=== PATIENT | male | born 1975 | race Caucasian/White ===

== ENCOUNTER 2017-02-12 15:42 | Emergency (ER) | payer OTHER ==
[2017-02-12 15:53] VITALS: BMI 37.8
--- NOTE | 2017-02-12 17:27 | PDOC ---
History of Present Illness - History of Present Illness Initial Comments: 02/12/17 18:07 Patient is a 41 year old male with significant medical hx of ETOH abuse who is presenting to the ED with abdominal pain for the past two years but worsened today. The patient reports diffuse abdominal pain that is worse in the epigastric region and LLQ. He describes his pain as an "exploding" and "bursting " sensation; the patient rates his pain 7/10 in severity. The patient notes that he was on protonix several years ago which helped for a while until he was switched to prilosec. Patient suspects his abdominal pain is related to his drinking; his last drink was several hours prior to arrival. The patient's last detox was 09/2016. Denies fever, chills, nausea, vomiting, diarrhea. NKDA, denies past surgeries <Amy Mayorga - Last Filed: 02/12/17 18:07> - General History Source: Patient Exam Limitations: No Limitations <Elizabeth Owusu - Last Filed: 02/13/17 13:11> - General Chief Complaint: Pain Stated Complaint: ABD PAIN Time Seen by Provider: 02/12/17 17:25 Past History <Amy Mayorga - Last Filed: 02/12/17 18:07> - Past Medical History Anemia: No Asthma: No Cancer: No Cardiac Disorders: No CVA: No COPD: No CHF: No Dementia: No Diabetes: No GI Disorders: Yes (GERD no med) Disorders: No HTN: No Hypercholesterolemia: No Kidney Stones: No Liver Disease: No Suicide Attempt (Hx): Yes (2-3x) Seizures: No Thyroid Disease: No - Surgical History Abdominal Surgery: No Appendectomy: No Cardiac Surgery: No Cholecystectomy: No Lung Surgery: No Neurologic Surgery: No Orthopedic Surgery: No - Reproductive History Testicular Surgery: No - Psycho/Social/Smoking Cessation Hx Anxiety: Yes Suicidal Ideation: No Smoking Status: Yes Smoking History: Current every day smoker Have you smoked in the past 12 months: Yes Number of Cigarettes Smoked Daily: 20 Information on smoking cessation initiated: No 'Breaking Loose' booklet given: 09/04/16 Hx Alcohol Use: Yes Drug/Substance Use Hx: Yes Substance Use Type: Alcohol, Marijuana Hx Substance Use Treatment: Yes ([facility] 06/16/12 to 06/21/12) <Elizabeth Owusu - Last Filed: 02/13/17 13:11> - Past Medical History Allergies/Adverse Reactions: Allergies Allergy/AdvReac Type Severity Reaction Status Date / Time No Known Allergies Allergy Verified 02/12/17 15:50 Home Medications: Ambulatory Orders Quetiapine Fumarate [Seroquel -] 200 mg PO HS 09/04/16 Quetiapine Fumarate [Seroquel -] 200 mg PO HS #30 tab 09/04/16 Hydrochlorothiazide [Hctz -] 25 mg PO DAILY #30 tablet 09/08/16 Review of Systems - Review of Systems Comments:: 02/12/17 18:12 GENERAL/CONSTITUTIONAL: No: fever, chills, weakness, loss of appetite. HEAD, EYES, EARS, NOSE AND THROAT: No: change in vision, ear pain, discharge, sore throat, throat swelling. CARDIOVASCULAR: No: chest pain, lightheadedness, palpitations, syncope RESPIRATORY: No: cough, shortness of breath, wheezing, hemoptysis, stridor. GASTROINTESTINAL: Yes: abdominal pain. No: nausea, vomiting, abdominal cramping , diarrhea, rectal bleeding, constipation. GENITOURINARY: No: dysuria, hematuria, frequency, urgency, flank pain. MUSCULOSKELETAL: No: back pain, neck pain, joint pain, muscle swelling or pain SKIN AND BREASTS: No: lesions, pallor, rash or easy bruising. NEUROLOGIC: No: headache, vertigo, paresthesias, weakness ENDOCRINE: No: unexplained weight gain or loss HEMATOLOGIC/LYMPHATIC: No: anemia, easy bleeding, swelling nodes <Tierra,Amy - Last Filed: 02/12/17 18:07> *Physical Exam - Vital Signs Last Vital Signs Temp Pulse Resp BP Pulse Ox 98.2 F 112 H 18 158/117 97 02/12/17 15:50 02/12/17 15:50 02/12/17 15:50 02/12/17 15:50 02/12/17 15:50 - Physical Exam Comments: 02/12/17 18:13 GENERAL: The patient is in no acute distress. HEAD: Normal with no signs of trauma. EYES: PERRLA, EOMI, sclera anicteric, conjunctiva clear. ENT: Ears normal, nares patent, oropharynx clear without exudates. Moist mucous membranes. NECK: Normal range of motion, supple without lymphadenopathy, JVD, or masses. LUNGS: Breath sounds equal, clear to auscultation bilaterally. No wheezes, and no crackles. HEART:Regular rate and rhythm, normal S1 and S2 without murmur, rub or gallop. ABDOMEN: Soft, diffuse abdominal tenderness to RUQ, epigastric region and LLQ with voluntary guarding, no rebound, normoactive bowel sounds. EXTREMITIES: Normal range of motion, no edema. No clubbing or cyanosis. No erythema, or tenderness. NEUROLOGICAL: Cranial nerves II through XII grossly intact. Normal speech. No focal neurological deficits. MUSCULOSKELETAL: Back non-tender to palpation, no CVA tenderness SKIN: Warm, Dry, normal turgor, no rashes or lesions noted. <Amy Mayorga - Last Filed: 02/12/17 18:07> - Vital Signs Last Vital Signs Temp Pulse Resp BP Pulse Ox 98.2 F 112 H 18 158/117 97 02/12/17 15:50 02/12/17 15:50 02/12/17 15:50 02/12/17 15:50 02/12/17 15:50 <Elizabeth Owusu - Last Filed: 02/13/17 13:11> ED Treatment Course - LABORATORY CBC & Chemistry Diagram: 02/12/17 17:33 02/12/17 17:33 <Elizabeth Owusu - Last Filed: 02/13/17 13:11> Medical Decision Making - Medical Decision Making 02/12/17 17:26 A portion of this note was documented by scribe services under my direction. I have reviewed the details of the note, within reason, and agree with the documentation with the following case summary and management plan written by me. Nursing documentation reviewed and incorporated into medical decision making This is a 41 yo M with a history of alcohol abuse, he states he drinks 8 beers per day (+) h/o withdrawal no h/o withdrawal seizure Pt presents to the Er with a complaint of abdominal pain Pt states he has had this pain for many years but it has worsened He was previously prescribed protonix, ran out of this and was switched to pepcid which he does not think was as effective as protonix Pt states he has pain which he can only describe as "Something exploding in his stomach" or like "metal in his stomach" No fevers or chills No vomiting No diarrhea Pt last drink was a few hours ago On examination: RUQ tenderness to palpation LLQ tenderness to palpation (+) guarding No rebound Will do Labs IV Fluids Banana bag Protonix Will do CT abd and pelvis Will re assess Pt last detox on Sep 2016 Pt signed out to Dr Valadez, may benefit from transfer to [facility] <Elizabeth Owusu - Last Filed: 02/13/17 13:11> *DC/Admit/Observation/Transfer - Attestations Scribe Attestion: 02/12/17 18:14 Documentation prepared by Amy Mayorga, acting as medical photographer for Elizabeth Owusu MD. <Amy Mayorga - Last Filed: 02/12/17 18:07> <Elizabeth Owusu - Last Filed: 02/13/17 13:11> Diagnosis at time of Disposition: Alcohol dependence - Discharge Dispostion Disposition: I.P. ALCOHOL/SUBS ABUSE REHAB Condition at time of disposition: Stable
[2017-02-12] MEDS: SODIUM CHLORIDE 1,000 ML IV STA (18:06)
[2017-02-12] MEDS ORDERED: chlordiazePOXIDE HCL 25 MG CAPSULE ONE (18:12)
[2017-02-12] MEDS ORDERED: PANTOPRAZOLE SODIUM 100 ML IVPB ONE (18:12)
[2017-02-12 18:19] LABS: BASOPHIL 0.7 % (0-2.0); EOSINOPHIL 1.2 % (0-4.5); MCH 29.1 pg (25.7-33.7); MCHC 33.4 g/dl (32.0-35.9); MEAN CELL VOLUME 87.1 fl (80-96); MEAN PLT VOLUME 9.4 fl (7.5-11.1); NEUTROPHILS 53.3 % (42.8-82.8); PLATELET COUNT 65 K/MM3 (134-434); WHITE BLOOD COUNT 4.6 K/mm3 (4.0-10.0)
[2017-02-12] MEDS: chlordiazePOXIDE HCL 25 MG CAPSULE PO ONE (18:20)
[2017-02-12] MEDS: PANTOPRAZOLE SODIUM 40 MG in SODIUM CHLORIDE 100 ML IVPB ONE (18:20)
[2017-02-12 18:43] LABS: ALBUMIN 3.9 g/dl (3.4-5.0); ALK PHOS 83 U/L (45-117); ANION GAP 12 (8-16); BILIRUBIN,TOTAL 0.6 mg/dL (0.2-1.0); CALCIUM 8.6 mg/dL (8.5-10.1); CO2 25 mmol/L (21-32); COCKROFT - GAULT 155.5; CREATININE 0.9 mg/dL (0.7-1.3); GLUCOSE,RANDOM 131 mg/dL (74-106); SGOT/AST 199 U/L (15-37); SGPT/ALT 152 U/L (12-78); TOT PROT 7.5 g/dl (6.4-8.2)
[2017-02-12] MEDS: FOLIC ACID INJECTION - 1 MG, THIAMINE HCL 100 MG, MULTIVIT INJECTION ADULT 10 ML in SOD... IVPB ONE (21:25)
--- NOTE | 2017-02-13 00:16 | PDOC ---
*Physical Exam - Vital Signs Last Vital Signs Temp Pulse Resp BP Pulse Ox 98.2 F 112 H 18 158/117 97 02/12/17 15:50 02/12/17 15:50 02/12/17 15:50 02/12/17 15:50 02/12/17 15:50 - Physical Exam General Appearance: Yes: Nourished ED Treatment Course - LABORATORY CBC & Chemistry Diagram: 02/12/17 17:33 02/12/17 17:33 - ADDITIONAL ORDERS Additional order review: Laboratory Results 02/12/17 17:33 Sodium 138 Potassium 3.7 Chloride 101 Carbon Dioxide 25 Anion Gap 12 BUN 4 L D Creatinine 0.9 Creat Clearance w eGFR > 60 Random Glucose 131 H Calcium 8.6 Total Bilirubin 0.6 AST 199 H D ALT 152 H D Alkaline Phosphatase 83 Total Protein 7.5 Albumin 3.9 02/12/17 17:33 RBC 5.46 MCV 87.1 MCHC 33.4 RDW 14.0 MPV 9.4 D Neutrophils % 53.3 Lymphocytes % 35.3 Monocytes % 9.5 Eosinophils % 1.2 D Basophils % 0.7 - RADIOLOGY Radiology Studies Ordered: Category Date Time Status ABDOMEN & PELVIS CT WITH CONTR [CT] Stat CT Scan 02/12/17 17:27 Completed - Medications Given in the ED: ED Medications Discontinued Medications Generic Name Dose Route Start Last Admin Trade Name Gema PRN Reason Stop Dose Admin Chlordiazepoxide HCl 25 mg 02/12/17 17:51 02/12/17 18:20 Librium - PO 02/12/17 17:52 25 mg ONCE ONE Administration Pantoprazole Sodium 40 mg/ 100 mls @ 200 mls/hr 02/12/17 18:04 02/12/17 18:20 Sodium Chloride IVPB 02/12/17 18:33 200 mls/hr ONCE ONE Administration Medical Decision Making - Medical Decision Making 02/13/17 06:24 spoke to nurse practtioner at [facility]. Patient may go to [facility] at 8 a.m. this morning. *DC/Admit/Observation/Transfer Diagnosis at time of Disposition: Alcohol dependence - Discharge Dispostion Disposition: I.P. ALCOHOL/SUBS ABUSE REHAB Condition at time of disposition: Stable Admit: No
[2017-02-13] MEDS ORDERED: chlordiazePOXIDE HCL 25 MG CAPSULE ONE ×2 (00:22→05:45)
[2017-02-13] MEDS ORDERED: LORAZEPAM CARPU-JECT 2 MG/ML DISP.SYRIN ONE ×2 (00:22→05:46)
[2017-02-13] MEDS: chlordiazePOXIDE HCL 25 MG CAPSULE PO ONE ×2 (00:30→05:50)
[2017-02-13] MEDS: LORAZEPAM CARPU-JECT 2 MG/ML DISP.SYRIN IVPUSH ONE ×2 (00:30→05:50)
[2017-02-13 05:32] VITALS: TEMP 98
--- NOTE | 2017-02-13 10:05 | PDOC ---
*Physical Exam - Vital Signs Last Vital Signs Temp Pulse Resp BP Pulse Ox 98.0 F 83 16 116/94 98 02/13/17 05:29 02/13/17 05:29 02/13/17 05:29 02/13/17 05:29 02/13/17 05:29 ED Treatment Course - LABORATORY CBC & Chemistry Diagram: 02/12/17 17:33 02/12/17 17:33 - ADDITIONAL ORDERS Additional order review: 02/12/17 17:33 RBC 5.46 MCV 87.1 MCHC 33.4 RDW 14.0 MPV 9.4 D Neutrophils % 53.3 Lymphocytes % 35.3 Monocytes % 9.5 Eosinophils % 1.2 D Basophils % 0.7 - Medications Given in the ED: ED Medications Discontinued Medications Generic Name Dose Route Start Last Admin Trade Name Freq PRN Reason Stop Dose Admin Chlordiazepoxide HCl 25 mg 02/12/17 17:51 02/12/17 18:20 Librium - PO 02/12/17 17:52 25 mg ONCE ONE Administration Chlordiazepoxide HCl 25 mg 02/13/17 00:14 02/13/17 00:30 Librium - PO 02/13/17 00:15 25 mg ONCE ONE Administration Chlordiazepoxide HCl 25 mg 02/13/17 05:40 02/13/17 05:50 Librium - PO 02/13/17 05:41 25 mg ONCE ONE Administration Sodium Chloride 1,000 mls @ 125 mls/hr 02/12/17 17:28 02/12/17 18:06 Normal Saline - IV 02/13/17 01:27 125 mls/hr ASDIR STA Administration Pantoprazole Sodium 40 mg/ 100 mls @ 200 mls/hr 02/12/17 18:04 02/12/17 18:20 Sodium Chloride IVPB 02/12/17 18:33 200 mls/hr ONCE ONE Administration Folic Acid 1 mg/ Thiamine HCl 1,000 mls @ 125 mls/hr 02/12/17 18:04 02/12/17 21 :25 100 mg/ Multivitamins/Minerals IVPB 02/13/17 02:03 125 mls/hr 10 ml/ Sodium Chloride ONCE ONE Administration Lorazepam 1 mg 02/13/17 00:16 02/13/17 00:30 Ativan Injection - IVPUSH 02/13/17 00:17 1 mg ONCE ONE Administration Lorazepam 1 mg 02/13/17 05:40 02/13/17 05:50 Ativan Injection - IVPUSH 02/13/17 05:41 1 mg ONCE ONE Administration Medical Decision Making - Medical Decision Making 02/13/17 10:05 D/w Dr. Johansen, patient is accepted to [facility]. *DC/Admit/Observation/Transfer Diagnosis at time of Disposition: Alcohol dependence - Discharge Dispostion Disposition: I.P. ALCOHOL/SUBS ABUSE REHAB Condition at time of disposition: Stable Admit: No
[2017-02-13 10:41] VITALS: BP 160/100; PULSE 86
== END 2017-02-13 10:43 | disposition other institution (70) ==
LOC: JER 15:42
PROC: 3E033GC Introduction of Other Therapeutic Substance into Peripheral Vein, Percutaneous Approach (ICD-10-PCS; principal; 2017-02-12)
PROC: 3E033GC Introduction of Other Therapeutic Substance into Peripheral Vein, Percutaneous Approach (ICD-10-PCS; 2017-02-12)
PROC: 3E033NZ Introduction of Analgesics, Hypnotics, Sedatives into Peripheral Vein, Percutaneous Approach (ICD-10-PCS; 2017-02-12)
DX: F10.20 Alcohol dependence, uncomplicated (principal)
CPT/HCPCS: 36415; 74177-TC; 80053; 85025; 99282-25

== ENCOUNTER 2017-02-13 11:34 | Inpatient (IN) | payer OTHER ==
[2017-02-13 14:09] VITALS: BMI 32.5
--- NOTE | 2017-02-13 17:56 | HP ---
CIWA Score - CIWA Score Nausea/Vomitin-Mild Nausea/No Vomiting Muscle Tremors: 4-Moderate,w/Arms Extend Anxiety: 4-Mod. Anxious/Guarded Agitation: 4-Moderately Restless Paroxysmal Sweats: 1-Minimal Palms Moist Orientation: 0-Oriented Tacttile Disturbances: 0-None Auditory Disturbances: 0-None Visual Disturbances: 0-None Headache: 1-Very Mild (treated 02/12/17 in er for gastritic and dehydration received librium and ativan) CIWA-Ar Total Score: 15 Admission ROS S - HPI Chief Complaint: withdrawal sx Allergies/Adverse Reactions: Allergies Allergy/AdvReac Type Severity Reaction Status Date / Time No Known Allergies Allergy Verified 02/13/17 17:00 History of Present Illness: 41 years old male with long history of alcohol, nicotine dependence, has hypertension, gerd, and depression is admitted to detox Exam Limitations: No Limitations - Ebola screening Have you traveled outside of the country in the last 21 days: No Have you had contact with anyone from an Ebola affected area: No Have you been sick,other than usual withdrawal symptoms: No Do you have a fever: No - Review of Systems Constitutional: Chills, Changes in sleep, Weight Stable EENT: reports: Other (hair loss from depakote) Respiratory: reports: No Symptoms reported Cardiac: reports: No Symptoms Reported GI: reports: Nausea, Poor Fluid Intake, Indigestion, Abdominal cramping : reports: No Symptoms Reported Musculoskeletal: reports: No Symptoms Reported Integumentary: reports: No Symptoms Reported Neuro: reports: Tremors Endocrine: reports: No Symptoms Reported Hematology: reports: No Symptoms Reported Psychiatric: reports: Judgement Intact, Orientated x3, Anxious, Depressed Other Systems: Reviewed and Negative Patient History - Patient Medical History Hx Anemia: No Hx Asthma: No Hx Chronic Obstructive Pulmonary Disease (COPD): No Hx Cancer: No Hx Cardiac Disorders: No Hx Congestive Heart Failure: No Hx Hypertension: Yes Hx Hypercholesterolemia: No Hx Pacemaker: No HX Cerebrovascular Accident: No Hx Seizures: No Hx Dementia: No Hx Diabetes: No Hx Gastrointestinal Disorders: Yes (GERD no med) Hx Liver Disease: No Hx Genitourinary Disorders: No Hx Sexually Transmitted Disorders: No Hx Renal Disease (ESRD): No Hx Thyroid Disease: No Hx Human Immunodeficiency Virus (HIV): No (last 2013) Hx Hepatitis C: No Hx Depression: Yes Hx Suicide Attempt: Yes (2006 overdose) Hx Bipolar Disorder: No Hx Schizophrenia: No - Patient Surgical History Past Surgical History: No Hx Neurologic Surgery: No Hx Cataract Extraction: No Hx Cardiac Surgery: No Hx Lung Surgery: No Hx Breast Surgery: No Hx Breast Biopsy: No Hx Abdominal Surgery: No Hx Appendectomy: No Hx Cholecystectomy: No Hx Genitourinary Surgery: No Hx Orthopedic Surgery: No - PPD History Previous Implant?: Yes Documented Results: Negative w/proof Implanted On Prior R Admission?: Yes Date: 09/06/16 PPD to be Administered?: No - Smoking Cessation Smoking history: Current every day smoker Have you smoked in the past 12 months: Yes Aproximately how many cigarettes per day: 20 Cigars Per Day: 0 Hx Chewing Tobacco Use: No Initiated information on smoking cessation: Yes 'Breaking Loose' booklet given: 02/13/17 - Substance & Tx. History Hx Alcohol Use: Yes Hx Substance Use: No Substance Use Type: Alcohol Hx Substance Use Treatment: Yes - Substances Abused Alcohol Route: Oral Frequency: Daily Amount used: BEER- 3 SIX PACK Age of first use: 19 Date of Last Use: 02/12/17 Family Disease History - Family Disease History Family Disease History: Other: Father (alcohol,), Mother (psychiatric problem) Admission Physical Exam [facility] - Vital Signs Vital Signs: Vital Signs - 24 hr 02/13/17 14:08 Temperature 97 F L Pulse Rate 104 H Respiratory 18 Rate Blood Pressure 155/112 - Physical General Appearance: Yes: Appropriately Dressed, Mild Distress (received ativan and librium at er), Obese, Tremorous, Irritable, Sweating, Anxious HEENTM: Yes: Hearing grossly Normal, Normal ENT Inspection, Normal Voice Respiratory: Yes: Chest Non-Tender, Lungs Clear, Normal Breath Sounds, No Respiratory Distress, No Accessory Muscle Use Neck: Yes: Supple, Trachea in good position Breast: Yes: Breasts Symetrical Cardiology: Yes: Regular Rhythm, S1, S2, Tachycardia Abdominal: Yes: Non Tender, Soft Genitourinary: Yes: Within Normal Limits Back: Yes: Normal Inspection Musculoskeletal: Yes: full range of Motion, Gait Steady Extremities: Yes: Normal Range of Motion, Non-Tender, Tremors, Erythema (iv jacob from er treated for dehydration) Neurological: Yes: Fully Oriented, Alert, Motor Strength 5/5, Normal Response, Depressed Affect Integumentary: Yes: Warm, Clammy Lymphatic: Yes: Within Normal Limits - Diagnostic (1) Alcohol dependence with uncomplicated withdrawal Current Visit: Yes Status: Acute (2) Essential hypertension Current Visit: Yes Status: Acute (3) Nicotine dependence Current Visit: Yes Status: Acute Qualifiers: Nicotine product type: cigarettes Substance use status: in withdrawal Qualified Code(s): F17.213 - Nicotine dependence, cigarettes, with withdrawal (4) Gastritis Current Visit: Yes Status: Acute Qualifiers: Gastritis type: alcoholic Gastritis bleeding: with bleeding Comment: arabella stool (5) Depression (emotion) Current Visit: Yes Status: Suspected Qualifiers: Depression Type: major depressive disorder Major depression recurrence : recurrent Active/Remission status: in partial remission Qualified Code(s): F33.41 - Major depressive disorder, recurrent, in partial remission Cleared for Admission [facility] - Detox or Rehab [facility] Level of Care: Medically Managed Detox Regimen/Protocol: Librium S Breath Alcohol Content Breath Alcohol Content: 0 Urine Drug Screen - Results Drug Screen Negative: No Urine Drug Screen Results: THC-Marijuana, BZO-Benzodiazepines
[2017-02-13] MEDS ORDERED: LOPERAMIDE HCL 2 MG CAPSULE PO PRN (18:08)
[2017-02-13] MEDS ORDERED: MAGNESIUM HYDROX 2400MG/30ML ORAL SUSPENSION 30 ML CUP PO PRN (18:08)
[2017-02-13] MEDS ORDERED: MAG HYDROX/AL HYDROX/SIMETH 30 ML UNIT-DOSE CUP PO PRN (18:08)
[2017-02-13] MEDS ORDERED: P-EPHED 60MG/TRIPROLIDI 2.5MG TABLET PO PRN (18:08)
[2017-02-13] MEDS ORDERED: chlordiazePOXIDE HCL 25 MG CAPSULE PO ONE (18:08)
[2017-02-13] MEDS ORDERED: MAGNESIUM CITRATE 300 ML BOTTLE PO PRN (18:08)
[2017-02-13] MEDS ORDERED: guaiFENesin/D-METHORPHAN HB 10 ML UNIT-DOSE CUPS PO PRN (18:08)
[2017-02-13] MEDS ORDERED: chlordiazePOXIDE HCL 25 MG CAPSULE PO PRN (18:08)
[2017-02-13] MEDS ORDERED: MENTHOL/PHENOL 1 EACH UD MM PRN (18:08)
[2017-02-13] MEDS ORDERED: hydrOXYzine PAMOATE 50 MG CAPSULE (FP) PO PRN (18:08)
[2017-02-13] MEDS ORDERED: NICOTINE POLACRILEX 4 MG GUM BUC PRN (18:08)
[2017-02-13] MEDS ORDERED: ACETAMINOPHEN 325 MG TABLET (FP) PO PRN (18:08)
[2017-02-13] MEDS ORDERED: diphenhydrAMINE HCL 50 MG CAPSULE PO PRN (18:08)
[2017-02-13] MEDS ORDERED: METOPROLOL SUCCINATE 25 MG TAB.SR.24H (FP) PO ONE (19:58)
[2017-02-13] MEDS ORDERED: METOPROLOL TARTRATE 25 MG TABLET (FP) PO ONE (20:01)
[2017-02-13] MEDS: PANTOPRAZOLE 40 MG TABLET (FP) PO SCH (22:52)
[2017-02-13] MEDS: THIAMINE HCL 100 MG TABLET (FP) PO SCH (22:53)
[2017-02-13] MEDS: METOPROLOL SUCCINATE 25 MG TAB.SR.24H (FP) PO SCH (22:53)
[2017-02-13] MEDS: chlordiazePOXIDE HCL 25 MG CAPSULE PO SCH (22:53)
[2017-02-14 00:12] LABS: URINE APPEARANCE CLEAR; URINE BILIRUBIN NEGATIVE (NEGATIVE); URINE BLOOD NEGATIVE (NEGATIVE); URINE COLOR YELLOW; URINE GLUCOSE (UA) NEGATIVE (NEGATIVE); URINE KETONE TRACE (NEGATIVE); URINE LEUK ESTERASE NEGATIVE (NEGATIVE); URINE NITRITE NEGATIVE (NEGATIVE); URINE PROTEIN NEGATIVE (NEGATIVE); URINE UROBILINOGEN 4.0 E.U/dl E.U./dl (0.2-1.0)
[2017-02-14] MEDS: chlordiazePOXIDE HCL 25 MG CAPSULE PO SCH ×4 (05:48→22:39)
[2017-02-14 10:35] LABS: MCH 29.1 pg (25.7-33.7); MCHC 32.5 g/dl (32.0-35.9); MEAN CELL VOLUME 89.4 fl (80-96); MEAN PLT VOLUME 11.3 fl (7.5-11.1); PLATELET COUNT 49 K/MM3 (134-434); WHITE BLOOD COUNT 3.8 K/mm3 (4.0-10.0)
[2017-02-14 11:01] LABS: ALBUMIN 3.9 g/dl (3.4-5.0); ALK PHOS 83 U/L (45-117); ANION GAP 10 (8-16); BILIRUBIN,TOTAL 1.5 mg/dL (0.2-1.0); CALCIUM 8.9 mg/dL (8.5-10.1); CO2 27 mmol/L (21-32); COCKROFT - GAULT 120.89; GLUCOSE,RANDOM 166 mg/dL (74-106); SGOT/AST 155 U/L (15-37); SGPT/ALT 141 U/L (12-78); TOT PROT 7.5 g/dl (6.4-8.2)
[2017-02-14] MEDS: NICOTINE 21 MG/24 HOURS TOPICAL PATCH TD SCH (11:04)
[2017-02-14] MEDS: PRENATAL VITAMINS W/ FOLIC ACID TABLET (FP) PO SCH (11:04)
[2017-02-14] MEDS: PANTOPRAZOLE 40 MG TABLET (FP) PO SCH ×2 (11:04→22:39)
--- NOTE | 2017-02-14 11:12 | CONSULT ---
[facility] Psychiatric Consult - Data Date of interview: 02/14/17 Admission source: [facility] Identifying data: Readmission to [facility] for this 41 y/o male seeking detox treatment for alcohol and marijuana dependence.Patient is single without children,domiciled,unemployed and supported on [facility] benfits. Substance Abuse History: - Smoking Cessation. Smoking history: Current every day smoker. Have you smoked in the past 12 months: Yes. Aproximately how many cigarettes per day: 20. Cigars Per Day: 0. Hx Chewing Tobacco Use: No. Initiated information on smoking cessation: Yes. 'Breaking Loose' booklet given : 02/13/17. - Substance & Tx. History. Hx Alcohol Use: Yes. Hx Substance Use : No. Substance Use Type: Alcohol. Hx Substance Use Treatment: Yes. - Substances Abused. Alcohol. Route: Oral. Frequency: Daily. Amount used: BEER- 3 SIX PACK. Age of first use: 19. Date of Last Use: 02/12/17. Confirmed by patient. Medical History: GERD,gastritis and hypertension. Psychiatric History: Onset of emotional disturbances : 1988.History of multiple psychiatric hospitalizations ([facility] ,[facility]).Diagnosed with MDD/Bipolar Disorder.Prescribed seroquel 200 mg/hs.Mr Louie indicates that he has no current affiliation with [facility]PD care providers.He admits to a remote history of suicide attempt by overdose with medications (years ago). Physical/Sexual Abuse/Trauma History: Patient denies. Additional Comment: Urine Drug Screen Results: THC-Marijuana, BZO- Benzodiazepines.Noted. Mental Status Exam - Mental Status Exam Alert and Oriented to: Time, Place, Person Cognitive Function: Good Patient Appearance: Well Groomed Mood: Nervous, Anxious, Apprehensive Affect: Mood Congruent Patient Behavior: Passive, Cooperative Speech Pattern: Clear Voice Loudness: Normal Thought Process: Goal Oriented Thought Disorder: Not Present Hallucinations: Denies Suicidal Ideation: Denies Homicidal Ideation: Denies Insight/Judgement: Poor Sleep: Poorly, Difficulty falling asleep Appetite: Good Muscle strength/Tone: Normal Gait/Station: Normal Psychiatric Findings - Problem List ([place] 1, 2,3) (1) Alcohol dependence with uncomplicated withdrawal Current Visit: Yes Status: Acute (2) Cannabis dependence Current Visit: Yes Status: Acute (3) Nicotine dependence Current Visit: Yes Status: Acute Qualifiers: Nicotine product type: cigarettes Substance use status: in withdrawal Qualified Code(s): F17.213 - Nicotine dependence, cigarettes, with withdrawal (4) Drug-induced mood disorder Current Visit: Yes Status: Acute (5) Bipolar disorder Current Visit: Yes Status: Chronic Comment: History. (6) Essential hypertension Current Visit: Yes Status: Acute (7) Gastritis Current Visit: Yes Status: Acute Qualifiers: Gastritis type: alcoholic Gastritis bleeding: with bleeding Comment: arabella stool - Initial Treatment Plan Initial Treatment Plan: Psychoeducation.Detoxification.Seroquel 200 mg po hs.Side effects/benefits discused with patient.He agrees with this plan of care.Observation.
[2017-02-14] MEDS: METOPROLOL SUCCINATE 25 MG TAB.SR.24H (FP) PO SCH ×2 (11:39→22:40)
--- NOTE | 2017-02-14 18:00 | PN ---
S CIWA - CIWA Score Nausea/Vomitin Muscle Tremors: 4-Moderate,w/Arms Extend Anxiety: 2 Agitation: 3 Paroxysmal Sweats: 4-Forehead w/Sweat Beads Orientation: 0-Oriented Tacttile Disturbances: 3-Moderate Itch/Numb/Burn Auditory Disturbances: 0-None Visual Disturbances: 2-Mild Sensitivity Headache: 0-None Present CIWA-Ar Total Score: 20 BHS Progress Note (SOAP) Subjective: Sweating, Tremors, Interrupted sleep. Objective: PT. A & O X 3, OBSERVED AMBULATING ON UNIT. PT. DENIES CHEST PAIN. 02/14/17 17:57 Vital Signs Temperature 97 F L 02/14/17 14:09 Pulse Rate 93 H 02/14/17 14:09 Respiratory Rate 19 02/14/17 14:09 Blood Pressure 141/97 02/14/17 14:09 O2 Sat by Pulse Oximetry (%) Laboratory Last Values WBC 3.8 K/mm3 (4.0-10.0) L 02/14/17 06:30 RBC 5.45 M/mm3 (4.00-5.60) 02/14/17 06:30 Hgb 15.8 GM/dL (11.7-16.9) 02/14/17 06:30 Hct 48.7 % (35.4-49) 02/14/17 06:30 MCV 89.4 fl (80-96) 02/14/17 06:30 MCHC 32.5 g/dl (32.0-35.9) 02/14/17 06:30 RDW 14.0 % (11.9-15.9) 02/14/17 06:30 Plt Count 49 K/MM3 (134-434) L D 02/14/17 06:30 MPV 11.3 fl (7.5-11.1) H D 02/14/17 06:30 Sodium 139 mmol/L (136-145) 02/14/17 06:30 Potassium 3.9 mmol/L (3.5-5.1) 02/14/17 06:30 Chloride 102 mmol/L (98-107) 02/14/17 06:30 Carbon Dioxide 27 mmol/L (21-32) 02/14/17 06:30 Anion Gap 10 (8-16) 02/14/17 06:30 BUN 6 mg/dL (7-18) L D 02/14/17 06:30 Creatinine 1.0 mg/dL (0.7-1.3) 02/14/17 06:30 Creat Clearance w eGFR > 60 (>60) 02/14/17 06:30 Random Glucose 166 mg/dL (74-106) H D 02/14/17 06:30 Calcium 8.9 mg/dL (8.5-10.1) 02/14/17 06:30 Total Bilirubin 1.5 mg/dL (0.2-1.0) H D 02/14/17 06:30 AST 155 U/L (15-37) H D 02/14/17 06:30 ALT 141 U/L (12-78) H 02/14/17 06:30 Alkaline Phosphatase 83 U/L (45-117) 02/14/17 06:30 Total Protein 7.5 g/dl (6.4-8.2) 02/14/17 06:30 Albumin 3.9 g/dl (3.4-5.0) 02/14/17 06:30 Urine Color Yellow 02/13/17 21:16 Urine Appearance Clear 02/13/17 21:16 Urine pH 7.0 (5.0-8.0) 02/13/17 21:16 Ur Specific [place] 1.018 (1.001-1.035) 02/13/17 21:16 Urine Protein Negative (NEGATIVE) 02/13/17 21:16 Urine Glucose (UA) Negative (NEGATIVE) 02/13/17 21:16 Urine Ketones Trace (NEGATIVE) H 02/13/17 21:16 Urine Blood Negative (NEGATIVE) 02/13/17 21:16 Urine Nitrite Negative (NEGATIVE) 02/13/17 21:16 Urine Bilirubin Negative (NEGATIVE) 02/13/17 21:16 Urine Urobilinogen 4.0 e.u/dl E.U./dl (0.2-1.0) 02/13/17 21:16 Ur Leukocyte Esterase Negative (NEGATIVE) 02/13/17 21:16 RPR Titer Nonreactive (NONREACTIVE) 02/14/17 06:30 LABS NOTED. Assessment: 02/14/17 17:59 WITHDRAWAL SYMPTOMS. Plan: CONTINUE DETOX. ADVISED PATIENT TO FOLLOW-UP WITH [facility] / REHAB MEDICAL PROVIDER AFTER DISCHARGE FROM DETOX FOR GENERAL MEDICAL ASSESSMENT AND FOR ABNORMAL ADMISSION LAB VALUES.
[2017-02-14] MEDS: THIAMINE HCL 100 MG TABLET (FP) PO SCH (22:39)
[2017-02-14] MEDS: QUEtiapine FUMARATE 200 MG TABLET PO SCH (22:39)
[2017-02-15] MEDS: chlordiazePOXIDE HCL 25 MG CAPSULE PO SCH ×3 (05:34→17:19)
[2017-02-15] MEDS: PRENATAL VITAMINS W/ FOLIC ACID TABLET (FP) PO SCH (10:40)
[2017-02-15] MEDS: METOPROLOL SUCCINATE 25 MG TAB.SR.24H (FP) PO SCH ×2 (10:40→22:42)
[2017-02-15] MEDS: PANTOPRAZOLE 40 MG TABLET (FP) PO SCH ×2 (10:41→22:42)
[2017-02-15] MEDS: NICOTINE 21 MG/24 HOURS TOPICAL PATCH TD SCH (10:42)
--- NOTE | 2017-02-15 12:25 | PN ---
[facility] CIWA - CIWA Score Nausea/Vomitin Muscle Tremors: 4-Moderate,w/Arms Extend Anxiety: 4-Mod. Anxious/Guarded Agitation: 4-Moderately Restless Paroxysmal Sweats: 3 Orientation: 0-Oriented Tacttile Disturbances: 0-None Auditory Disturbances: 0-None Visual Disturbances: 0-None Headache: 0-None Present CIWA-Ar Total Score: 18 [facility] Progress Note (SOAP) Subjective: nausea, sweats, interrupted sleep, anxiety, tremors Objective: 02/15/17 12:21 Vital Signs - 8 hr 02/15/17 02/15/17 06:24 10:52 Temperature 96.1 F L 96.1 F L Pulse Rate 101 H 103 H Respiratory 18 20 Rate Blood Pressure 124/95 144/100 hypertensive, tachycardic Laboratory Tests 02/13/17 02/14/17 02/14/17 21:16 06:30 06:30 WBC 3.8 L RBC 5.45 Hgb 15.8 Hct 48.7 MCV 89.4 MCHC 32.5 RDW 14.0 Plt Count 49 L D MPV 11.3 H D Sodium 139 Potassium 3.9 Chloride 102 Carbon Dioxide 27 Anion Gap 10 BUN 6 L D Creatinine 1.0 Creat Clearance w eGFR > 60 Random Glucose 166 H D Calcium 8.9 Total Bilirubin 1.5 H D AST 155 H D ALT 141 H Alkaline Phosphatase 83 Total Protein 7.5 Albumin 3.9 Urine Color Yellow Urine Appearance Clear Urine pH 7.0 Ur Specific [place] 1.018 Urine Protein Negative Urine Glucose (UA) Negative Urine Ketones Trace H Urine Blood Negative Urine Nitrite Negative Urine Bilirubin Negative Urine Urobilinogen 4.0 e.u/dl Ur Leukocyte Esterase Negative RPR Titer 02/14/17 06:30 WBC RBC Hgb Hct MCV MCHC RDW Plt Count MPV Sodium Potassium Chloride Carbon Dioxide Anion Gap BUN Creatinine Creat Clearance w eGFR Random Glucose Calcium Total Bilirubin AST ALT Alkaline Phosphatase Total Protein Albumin Urine Color Urine Appearance Urine pH Ur Specific [place] Urine Protein Urine Glucose (UA) Urine Ketones Urine Blood Urine Nitrite Urine Bilirubin Urine Urobilinogen Ur Leukocyte Esterase RPR Titer Nonreactive hyeprglycemia, elevated lfts, low plts and wbc Assessment: 02/15/17 12:21 withdrawal sx, liver disease, obesity Plan: cont detox, rn mediations, control bp and pulse - start clonidine
--- NOTE | 2017-02-15 14:32 | EKG ---
Test Reason : Blood Pressure : / mmHG Vent. Rate : 088 BPM Atrial Rate : 088 BPM P-R Int : 116 ms QRS Dur : 086 ms QT Int : 366 ms P-R-T Axes : 017 067 042 degrees QTc Int : 442 ms NORMAL SINUS RHYTHM NORMAL ECG WHEN COMPARED WITH ECG OF 15-JUN-2012 15:26, NO SIGNIFICANT CHANGE WAS FOUND Confirmed by REBECA IBRAHIM, SILVA ([id number]) on 02/15/2017 2:31:41 PM Referred By: Junito Snow Confirmed By:SILVA JOSE MD
[2017-02-15] MEDS: QUEtiapine FUMARATE 200 MG TABLET PO SCH (22:42)
[2017-02-15] MEDS: THIAMINE HCL 100 MG TABLET (FP) PO SCH (22:42)
[2017-02-15] MEDS: chlordiazePOXIDE 5 MG CAPSULE PO SCH (22:42)
[2017-02-16] MEDS: chlordiazePOXIDE 5 MG CAPSULE PO SCH ×3 (05:27→17:18)
[2017-02-16] MEDS: NICOTINE 21 MG/24 HOURS TOPICAL PATCH TD SCH (10:28)
[2017-02-16] MEDS: PANTOPRAZOLE 40 MG TABLET (FP) PO SCH ×2 (10:28→22:40)
[2017-02-16] MEDS: PRENATAL VITAMINS W/ FOLIC ACID TABLET (FP) PO SCH (10:28)
[2017-02-16] MEDS: METOPROLOL SUCCINATE 25 MG TAB.SR.24H (FP) PO SCH ×2 (10:28→22:40)
--- NOTE | 2017-02-16 13:22 | PN ---
[facility] Progress Note (SOAP) Subjective: Sweating,interrupted sleep,restless Objective: 02/16/17 13:21 Vital Signs - 8 hr 02/16/17 02/16/17 06:35 09:28 Temperature 96.6 F L Pulse Rate 97 H 102 H Respiratory 18 20 Rate Blood Pressure 131/89 127/96 Laboratory Last Values WBC 3.8 K/mm3 (4.0-10.0) L 02/14/17 06:30 RBC 5.45 M/mm3 (4.00-5.60) 02/14/17 06:30 Hgb 15.8 GM/dL (11.7-16.9) 02/14/17 06:30 Hct 48.7 % (35.4-49) 02/14/17 06:30 MCV 89.4 fl (80-96) 02/14/17 06:30 MCHC 32.5 g/dl (32.0-35.9) 02/14/17 06:30 RDW 14.0 % (11.9-15.9) 02/14/17 06:30 Plt Count 49 K/MM3 (134-434) L D 02/14/17 06:30 MPV 11.3 fl (7.5-11.1) H D 02/14/17 06:30 Sodium 139 mmol/L (136-145) 02/14/17 06:30 Potassium 3.9 mmol/L (3.5-5.1) 02/14/17 06:30 Chloride 102 mmol/L (98-107) 02/14/17 06:30 Carbon Dioxide 27 mmol/L (21-32) 02/14/17 06:30 Anion Gap 10 (8-16) 02/14/17 06:30 BUN 6 mg/dL (7-18) L D 02/14/17 06:30 Creatinine 1.0 mg/dL (0.7-1.3) 02/14/17 06:30 Creat Clearance w eGFR > 60 (>60) 02/14/17 06:30 Random Glucose 166 mg/dL (74-106) H D 02/14/17 06:30 Calcium 8.9 mg/dL (8.5-10.1) 02/14/17 06:30 Total Bilirubin 1.5 mg/dL (0.2-1.0) H D 02/14/17 06:30 AST 155 U/L (15-37) H D 02/14/17 06:30 ALT 141 U/L (12-78) H 02/14/17 06:30 Alkaline Phosphatase 83 U/L (45-117) 02/14/17 06:30 Total Protein 7.5 g/dl (6.4-8.2) 02/14/17 06:30 Albumin 3.9 g/dl (3.4-5.0) 02/14/17 06:30 Urine Color Yellow 02/13/17 21:16 Urine Appearance Clear 02/13/17 21:16 Urine pH 7.0 (5.0-8.0) 02/13/17 21:16 Ur Specific [place] 1.018 (1.001-1.035) 02/13/17 21:16 Urine Protein Negative (NEGATIVE) 02/13/17 21:16 Urine Glucose (UA) Negative (NEGATIVE) 02/13/17 21:16 Urine Ketones Trace (NEGATIVE) H 02/13/17 21:16 Urine Blood Negative (NEGATIVE) 02/13/17 21:16 Urine Nitrite Negative (NEGATIVE) 02/13/17 21:16 Urine Bilirubin Negative (NEGATIVE) 02/13/17 21:16 Urine Urobilinogen 4.0 e.u/dl E.U./dl (0.2-1.0) 02/13/17 21:16 Ur Leukocyte Esterase Negative (NEGATIVE) 02/13/17 21:16 RPR Titer Nonreactive (NONREACTIVE) 02/14/17 06:30 labs noted Assessment: 02/16/17 13:22 Withdrawal sx. Plan: Continue detox
[2017-02-16] MEDS: THIAMINE HCL 100 MG TABLET (FP) PO SCH (22:40)
[2017-02-16] MEDS: chlordiazePOXIDE HCL 10 MG CAPSULE PO SCH (22:40)
[2017-02-16] MEDS: QUEtiapine FUMARATE 200 MG TABLET PO SCH (22:40)
[2017-02-17] MEDS ORDERED: ONDANSETRON *ODT* 4 MG TABLET SL PRN (01:11)
[2017-02-17] MEDS: chlordiazePOXIDE HCL 10 MG CAPSULE PO SCH (06:12)
[2017-02-17] MEDS ORDERED: cloNIDine HCL 0.1 MG TABLET PO ONE (06:23)
[2017-02-17 06:34] VITALS: BP 158/114; PULSE 134; TEMP 96.2
--- NOTE | 2017-02-17 09:32 | DS ---
[facility] Detox Discharge Summary Admission Date: 02/13/17 Discharge Date: 02/17/17 - History Present History: Alcohol Dependence, Cannabis Dependence Additional Comments: DETOX COMPLETE. Pertinent Past History: HTN GERD DEPRESSION - Physical Exam Results Vital Signs: Vital Signs Temperature 96.2 F L 02/17/17 06:34 Pulse Rate 134 H 02/17/17 06:34 Respiratory Rate 20 02/17/17 06:34 Blood Pressure 158/114 02/17/17 06:34 O2 Sat by Pulse Oximetry (%) Pertinent Admission Physical Exam Findings: WITHDRAWAL SX - Treatment Hospital Course: Detox Protocol Followed, Detoxed Safely, Responded well, Discharged Condition Good - Medication Discharge Medications: Ambulatory Orders Quetiapine Fumarate [Seroquel -] 200 mg PO HS 09/04/16 Quetiapine Fumarate [Seroquel -] 200 mg PO HS #30 tab 09/04/16 Hydrochlorothiazide [Hctz -] 25 mg PO DAILY #30 tablet 09/08/16 Quetiapine Fumarate [Seroquel -] 200 mg PO HS #30 tab 02/14/17 - Diagnosis (1) Alcohol dependence with uncomplicated withdrawal Status: Acute (2) Essential hypertension Status: Chronic (3) Nicotine dependence Status: Acute Qualifiers: Nicotine product type: cigarettes Substance use status: in withdrawal Qualified Code(s): F17.213 - Nicotine dependence, cigarettes, with withdrawal (4) Cannabis dependence Status: Acute (5) Drug-induced mood disorder Status: Acute (6) Bipolar disorder Status: Chronic - AMA Did Patient Leave Against Medical Advice: No
== END 2017-02-17 09:05 | disposition home or self-care (01) | DRG 775 ==
LOC: YASAS 11:34 → Y3N 18:21
PROVIDERS: ADMIT Internal Medicine; ATTEND Internal Medicine
PROC: HZ2ZZZZ Detoxification Services for Substance Abuse Treatment (ICD-10-PCS; principal; 2017-02-13)
DX: F10.230 Alcohol dependence with withdrawal, uncomplicated (principal); F12.20 Cannabis dependence, uncomplicated; F17.210 Nicotine dependence, cigarettes, uncomplicated; F19.24 Other psychoactive substance dependence with psychoactive substance-induced mood disorder; F31.9 Bipolar disorder, unspecified; K21.9 Gastro-esophageal reflux disease without esophagitis; I10 Essential (primary) hypertension; R00.0 Tachycardia, unspecified; R94.5 Abnormal results of liver function studies; R73.9 Hyperglycemia, unspecified; E66.9 Obesity, unspecified; Z68.32 Body mass index [BMI] 32.0-32.9, adult; K76.9 Liver disease, unspecified; D72.819 Decreased white blood cell count, unspecified; D69.6 Thrombocytopenia, unspecified; Z91.5 Personal history of self-harm
CPT/HCPCS: 36415; 80053; 81003; 85027; 86593; 93005; 93010

== ENCOUNTER 2017-10-28 18:57 | Emergency (ER) | payer OTHER ==
--- NOTE | 2017-10-28 19:55 | PDOC ---
Rapid Medical Evaluation Time Seen by Provider: 10/28/17 19:54 Medical Evaluation: Allergies Allergy/AdvReac Type Severity Reaction Status Date / Time No Known Allergies Allergy Verified 02/13/17 17:00 10/28/17 19:54 I have performed a brief-in person evaluation of this patient. The patient presents with a chief complaint of: brbpr WITH ABD PAIN luq AND llq PAIN x5d Pertinent physical exam findings:LUQ/LLQ pain I have ordered the following: CBC CMP The patient will proceed to the ED for further evaulation. 10/28/17 20:02
[2017-10-28 20:04] VITALS: BP 157/111; PULSE 128; TEMP 98.8; BMI 34.3
[2017-10-28 21:17] LABS: BASO # 0.1 #; BASO % 0.5 % (0-2.0); EOS # 0.1 #; EOS % 0.8 % (0-4.5); LYMPH # 3.2; MCH 28.9 pg (25.7-33.7); MCHC 33.3 g/dl (32.0-35.9); MEAN CELL VOLUME 86.7 fl (80-96); MONO # 0.8 #; NEUT # 5.4 #; NEUT % 56.6 % (42.8-82.8); PLATELET COUNT 80 K/MM3 (134-434); RDW 14.4 % (11.9-15.9); WHITE BLOOD COUNT 9.5 K/mm3 (4.0-10.0)
[2017-10-28 21:55] LABS: ALBUMIN 4.3 g/dl (3.4-5.0); ALK PHOS 108 U/L (45-117); ANION GAP 15 (8-16); BILIRUBIN,TOTAL 1.5 mg/dL (0.2-1.0); CO2 20 mmol/L (21-32); GLUCOSE,RANDOM 96 mg/dL (74-106); SGOT/AST 148 U/L (15-37); SGPT/ALT 93 U/L (12-78); TOT PROT 8.6 g/dl (6.4-8.2)
--- NOTE | 2017-10-28 22:27 | PDOC ---
History of Present Illness - General Chief Complaint: Rectal Bleed Stated Complaint: RECTAL BLEEDING Time Seen by Provider: 10/28/17 19:54 - History of Present Illness Initial Comments: 10/28/17 22:53 The patient is a 41 year old male with a history of alcohol abuse who presents for evaluation of nausea, vomiting, and rectal bleeding. The patient reports a 2-3 day history of nausea, epigastric abdominal pain and multiple episodes of vomiting with what the patient describes as clots in the vomit. He noted some bright red blood per rectum prompting his presentation to the ED for evaluation. He notes that he has been drinking alcohol mostly beer over the past few days as well and feeling dehydrated. He states that he has had similar symptoms in the past, but never this severe. He denies fevers, chills, chest pain, SOB, or other changes with urination or bowel movements. Past History - Past Medical History Allergies/Adverse Reactions: Allergies Allergy/AdvReac Type Severity Reaction Status Date / Time No Known Allergies Allergy Verified 10/28/17 19:59 Home Medications: Ambulatory Orders Quetiapine Fumarate [Seroquel -] 200 mg PO HS 09/04/16 Quetiapine Fumarate [Seroquel -] 200 mg PO HS #30 tab 09/04/16 Hydrochlorothiazide [Hctz -] 25 mg PO DAILY #30 tablet 09/08/16 Quetiapine Fumarate [Seroquel -] 200 mg PO HS #30 tab 02/14/17 Anemia: No Asthma: No Cancer: No Cardiac Disorders: No CVA: No COPD: No CHF: No Dementia: No Diabetes: No GI Disorders: Yes (GERD no med) Disorders: No HTN: Yes Hypercholesterolemia: No Kidney Stones: No Liver Disease: No Seizures: No Thyroid Disease: No - Surgical History Abdominal Surgery: No Appendectomy: No Cardiac Surgery: No Cholecystectomy: No Lung Surgery: No Neurologic Surgery: No Orthopedic Surgery: No - Reproductive History Testicular Surgery: No - Immunization History Immunization Up to Date: Yes - Suicide/Smoking/Psychosocial Hx Smoking Status: Yes Smoking History: Current every day smoker Have you smoked in the past 12 months: Yes Number of Cigarettes Smoked Daily: 40 Cigars Per Day: 0 Information on smoking cessation initiated: No 'Breaking Loose' booklet given: 02/13/17 Hx Alcohol Use: No Drug/Substance Use Hx: No Substance Use Type: Alcohol Hx Substance Use Treatment: Yes Review of Systems - Review of Systems Comments:: 10/28/17 22:59 Constitutional: No fevers, chills, fatigue, malaise HEENT: No Rhinorrhea, nasal congestion, visual changes Cardiovascular: No chest pain, syncope, palpitations, lightheadedness Respiratory: No Cough, SOB, Hemoptysis, Gastrointestinal: Epigastric abdominal pain, nausea, vomiting. BRBPR No Constipation, Diarrhea, Melena Genitourinary: No Dysuria, Frequency, Urgency, Hesitancy, Hematuria, Flank pain Musculoskeletal: No Myalgia, arthralgia Skin: No rashes, bruising, pallor Neurologic: No Headache, Dizziness, Numbness, Weakness, or Tingling Psychiatric: No Hallucinations. No SI or HI *Physical Exam - Vital Signs Last Vital Signs Temp Pulse Resp BP Pulse Ox 98.8 F 128 H 20 157/111 97 10/28/17 20:00 10/28/17 20:00 10/28/17 20:00 10/28/17 20:00 10/28/17 20:00 - Physical Exam Comments: 10/28/17 23:04 General Appearance: Nourished. No Apparent Distress HEENT: EOMI, STEPHEN. No Pharyngeal Erythema, Tonsillar Exudate, Tonsillar Erythema Neck: No Cervical Lymphadenopathy Respiratory/Chest: Lungs Clear, Normal Breath Sounds. No Crackles, Rales, Rhonchi, Wheezing Cardiovascular: Regular Rhythm, Regular Rate. No Murmur, Gallops, Rubs Gastrointestinal/Abdominal: Normal Bowel Sounds, Soft. Epigastric tenderness to palpation. No Guarding, Rebound, Musculoskeletal: No CVA Tenderness Extremity: Normal Capillary Refill Integumentary: Normal Color, Dry, Warm Neurologic: Fully Oriented, Alert, Normal Mood/Affect, Normal Response, ED Treatment Course - LABORATORY CBC & Chemistry Diagram: 10/28/17 19:30 10/28/17 19:30 - ADDITIONAL ORDERS Additional order review: Laboratory Results 10/28/17 19:30 Sodium 131 L Potassium 3.1 L D Chloride 96 L Carbon Dioxide 20 L D Anion Gap 15 BUN 7 Creatinine 1.0 Creat Clearance w eGFR > 60 Random Glucose 96 D Calcium 9.0 Total Bilirubin 1.5 H AST 148 H ALT 93 H D Alkaline Phosphatase 108 D Total Protein 8.6 H Albumin 4.3 10/28/17 19:30 RBC 5.82 H MCV 86.7 MCHC 33.3 RDW 14.4 MPV 9.0 D Neutrophils % 56.6 Lymphocytes % 33.5 Monocytes % 8.6 Eosinophils % 0.8 Basophils % 0.5 Medical Decision Making - Medical Decision Making 10/28/17 23:05 The patient is a 41 year old male with a history of alcohol abuse who presents for evaluation of nausea, vomiting, and rectal bleeding. Differential includes but is not limited to: GI bleed, gastritis, gastroenteritis, infectious, metabolic derangement. Given the patient's history and physical exam, it is likely his symptoms are due to alcoholic gastritis. However we will obtain a cbc, cmp, and stool occult blood to evaluate for other etiologies. We will treat the patient with iv fluids, zofran, protonix, and continue to monitor and reassess. 10/29/17 02:16 CBC, cmp, ua and stool occult blood are unremarkable. The patient reports improvement in symptoms after receiving medications and is requesting to be sent to detox. We are comfortable discharging the patient at this time. We discussed with nakul Martinez at [facility] who informed us that we could send the patient over. We discussed the plan with the patient who voiced understanding and is agreeable. *DC/Admit/Observation/Transfer Diagnosis at time of Disposition: BRBPR (bright red blood per rectum) Nausea & vomiting Qualifiers: Vomiting type: unspecified Vomiting Intractability: unspecified Qualified Code( s): R11.2 - Nausea with vomiting, unspecified - Discharge Dispostion Disposition: HOME Condition at time of disposition: Improved Admit: No - Referrals - Patient Instructions Printed Discharge Instructions: DI for Rectal Bleeding, DI for Vomiting -- Adult Additional Instructions: Please return to the ER if you experience concerning or worsening symptoms including worsening pain, fevers, or vomiting. Your lab results were normal here in the ER. We have discussed with our detox facility and are comfortable sending you over. Please call to schedule a follow up appointment with your primary care provider to discuss further management of your symptoms within 1 week. - Post Discharge Activity
[2017-10-28] MEDS ORDERED: SODIUM CHLORIDE 1,000 ML IV STA (22:28)
[2017-10-28] MEDS ORDERED: METOCLOPRAMIDE HCL INJECTION 10 MG/2 ML VIAL IVPUSH ONE (22:28)
[2017-10-28] MEDS ORDERED: PANTOPRAZOLE SODIUM 40 MG VIAL IVPUSH ONE (22:28)
[2017-10-28] MEDS ORDERED: ONDANSETRON 4 MG/2 ML VIAL IVPUSH ONE (22:29)
--- NOTE | 2017-10-28 22:35 | PDOC ---
Attending Attestation - HPI HPI: 10/28/17 22:58 41 year old male with significant PMHx of alcohol abuse, GERD, and HTN, who presents to the emergency room complaining of nausea, multiple episodes of vomiting with "clots," and bright red blood per rectum. <Candy Thurston - Last Filed: 10/28/17 22:58> - Resident Resident Name: Ramses Avila - ED Attending Attestation I have performed the following: I have examined & evaluated the patient, The case was reviewed & discussed with the resident, I agree w/resident's findings & plan, Exceptions are as noted - Physicial Exam PE: 10/29/17 02:28 *Physical Exam General Appearance: Yes: Appropriately Dressed. No: Apparent Distress, Intoxicated HEENT: positive: EOMI, STEPHEN, Normal ENT Inspection, Normal Voice, TMs Normal, Pharynx Normal. negative: Pale Conjunctivae, Photophobia, Scleral Icterus (R), Scleral Icterus (L) Neck: positive: Trachea midline, Normal Thyroid, Supple. negative: Tender, Rigid, Carotid bruit, Stridor, Lymphadenopathy (R), Lymphadenopathy (L), Thyromegaly Respiratory/Chest: positive: Lungs Clear, Normal Breath Sounds. negative: Chest Tender, Respiratory Distress, Accessory Muscle Use, Labored Respiration, RES, Crackles, Rales, Rhonchi, Stridor, Wheezing, Dullness Cardiovascular: positive: Regular Rhythm, Regular Rate, S1, S2. negative: Edema , JVD, Murmur, Bradycardia, Tachycardia Vascular Pulses: Dorsalis-Pedis (R): 2+, Doralis-Pedis (L): 2+ Gastrointestinal/Abdominal: positive: Normal Bowel Sounds, Flat, Soft. negative : Tender, Organomegaly, Pulsatile Mass, Increased Bowel Sounds, Decreased BS, Distended, Guarding, Rebound, Hernia, Hepatomegaly, Spleenomegaly Lymphatic: negative: Adenopathy, Tenderness Musculoskeletal: positive: Normal Inspection. negative: CVA Tenderness, Decreased Range of Motion Extremity: positive: Normal Capillary Refill, Normal Inspection, Normal Range of Motion, Pelvis Stable. negative: Tender, Pedal Edema, Swelling, Erythema Integumentary: positive: Normal Color, Dry, Warm. 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 negative: EOM Palsy, Facial Droop, Sensory Deficit - Medical Decision Making 10/29/17 02:28 Pt treated. Pt to go to [facility] from Alcohol detox. <Bruce Valadez - Last Filed: 10/29/17 02:29>
[2017-10-28] MEDS ORDERED: POTASSIUM CHLORIDE TABS 20 MEQ TABLET.ER (FP) PO ONE ×2 (22:37→23:53)
[2017-10-28] MEDS ORDERED: ONDANSETRON 4 MG/2 ML VIAL ONE (23:53)
[2017-10-28] MEDS ORDERED: PANTOPRAZOLE SODIUM 40 MG/100 ML BAG IVPB ONE (23:53)
[2017-10-29] MEDS ORDERED: chlordiazePOXIDE HCL 25 MG CAPSULE PO ONE (01:30)
[2017-10-29] MEDS ORDERED: chlordiazePOXIDE HCL 25 MG CAPSULE ONE (01:50)
== END 2017-10-29 02:36 | disposition home or self-care (01) ==
LOC: JER 18:57
PROC: 3E033GC Introduction of Other Therapeutic Substance into Peripheral Vein, Percutaneous Approach (ICD-10-PCS; principal; 2017-10-28)
PROC: 3E033GC Introduction of Other Therapeutic Substance into Peripheral Vein, Percutaneous Approach (ICD-10-PCS; 2017-10-28)
DX: K62.5 Hemorrhage of anus and rectum (principal); R11.2 Nausea with vomiting, unspecified; I10 Essential (primary) hypertension; K21.9 Gastro-esophageal reflux disease without esophagitis; F17.210 Nicotine dependence, cigarettes, uncomplicated
CPT/HCPCS: 36415; 80053; 80307; 82272; 85025; 99282-25

== ENCOUNTER 2017-10-29 03:02 | Inpatient (IN) | payer OTHER ==
--- NOTE | 2017-10-29 03:19 | HP ---
CIWA Score - CIWA Score Nausea/Vomitin (vomiting x 10) Muscle Tremors: 4-Moderate,w/Arms Extend Anxiety: 3 Agitation: 2 Paroxysmal Sweats: 3 Orientation: 0-Oriented Tacttile Disturbances: 0-None Auditory Disturbances: 0-None Visual Disturbances: 0-None Headache: 2-Mild CIWA-Ar Total Score: 19 Admission ROS S - HPI Chief Complaint: Alcohol withdrawal symptoms Allergies/Adverse Reactions: Allergies Allergy/AdvReac Type Severity Reaction Status Date / Time No Known Allergies Allergy Verified 10/28/17 19:59 History of Present Illness: 41 years old male with a long history of alcohol and cannabis dependent is admitted to detox. Patient has been in previous detox and reports 8 months of sobriety. He has medical history of HTN, Depression and GERD. Denies suicidal ideation at this time. Patient was referred from ER by Dr. Rory Mcguire Exam Limitations: No Limitations - Ebola screening Have you traveled outside of the country in the last 21 days: No Have you had contact with anyone from an Ebola affected area: No Have you been sick,other than usual withdrawal symptoms: No - Review of Systems Constitutional: Chills, Loss of Appetite, Malaise, Night Sweats, Changes in sleep, Weakness EENT: reports: No Symptoms Reported, Sinus Pressure Respiratory: reports: No Symptoms reported Cardiac: reports: No Symptoms Reported GI: reports: Diarrhea, Poor Appetite, Poor Fluid Intake, Rectal Bleeding (seen in ER today with complaint of rectal bleeding. Denies rectal bleeding now.), Abdominal cramping : reports: No Symptoms Reported Musculoskeletal: reports: Muscle Pain, Muscle Weakness Integumentary: reports: Dryness, Flushing Neuro: reports: Tremors, Weakness Endocrine: reports: Flushing Hematology: reports: No Symptoms Reported Psychiatric: reports: Orientated x3, Anxious, Depressed Other Systems: Reviewed and Negative Patient History - Patient Medical History Hx Anemia: No Hx Asthma: No Hx Chronic Obstructive Pulmonary Disease (COPD): No Hx Cancer: No Hx Cardiac Disorders: No Hx Congestive Heart Failure: No Hx Hypertension: Yes Hx Hypercholesterolemia: No Hx Pacemaker: No HX Cerebrovascular Accident: No Hx Seizures: No Hx Dementia: No Hx Diabetes: No Hx Gastrointestinal Disorders: Yes (GERD no med) Hx Liver Disease: No Hx Genitourinary Disorders: No Hx Sexually Transmitted Disorders: No Hx Renal Disease (ESRD): No Hx Thyroid Disease: No Hx Human Immunodeficiency Virus (HIV): No (Negative 2014) Hx Hepatitis C: No Hx Depression: Yes Hx Suicide Attempt: Yes (2006 overdose. Denies suicidal ideation now.) Hx Bipolar Disorder: No Hx Schizophrenia: No - Patient Surgical History Past Surgical History: No Hx Neurologic Surgery: No Hx Cataract Extraction: No Hx Cardiac Surgery: No Hx Lung Surgery: No Hx Abdominal Surgery: No Hx Appendectomy: No Hx Cholecystectomy: No Hx Genitourinary Surgery: No Hx Orthopedic Surgery: No Anesthesia Reaction: No - PPD History Previous Implant?: Yes Documented Results: Negative w/proof Implanted On Prior [facility] Admission?: Yes Date: 09/06/16 PPD to be Administered?: Yes - Reproductive History Patient is a Female of Child Bearing Age (11 -55 yrs old): No (Male) - Smoking Cessation Smoking history: Current every day smoker Have you smoked in the past 12 months: Yes Aproximately how many cigarettes per day: 30 Cigars Per Day: 0 Hx Chewing Tobacco Use: No Initiated information on smoking cessation: Yes 'Breaking Loose' booklet given: 10/29/17 - Substance & Tx. History Hx Alcohol Use: Yes (Beer, Vodka) Hx Substance Use: Yes Substance Use Type: Marijuana Hx Substance Use Treatment: Yes ([facility]) - Substances Abused Alcohol Route: Oral Frequency: Daily Amount used: Beer - 2 x (6 packs), Vodka - 3 pints Age of first use: 13 Date of Last Use: 10/28/17 Marijuana/Hashish Route: Smoking Frequency: Daily Amount used: $10 Age of first use: 13 Date of Last Use: 10/28/17 Family Disease History - Family Disease History Family Disease History: Diabetes: Mother (alcoholic, psychiatric problem), Other : Father (alcoholic, ), Mother Admission Physical Exam S - Physical General Appearance: Yes: Moderate Distress, Tremorous, Irritable, Sweating, Anxious HEENTM: Yes: EOMI, Normal Voice, STEPHEN Respiratory: Yes: Lungs Clear, Normal Breath Sounds, No Respiratory Distress, No Accessory Muscle Use Neck: Yes: Supple Breast: Yes: Breast Exam Deferred Cardiology: Yes: Regular Rhythm, Regular Rate, S1, S2 Abdominal: Yes: Within Normal Limits Genitourinary: Yes: Within Normal Limits Back: Yes: Normal Inspection Musculoskeletal: Yes: Muscle Pain, Muscle weakness Extremities: Yes: Tremors Neurological: Yes: Alert, Normal Mood/Affect, Normal Response Integumentary: Yes: Dry Lymphatic: Yes: Within Normal Limits - Diagnostic (1) Alcohol dependence with uncomplicated withdrawal Current Visit: Yes Status: Chronic (2) Cannabis dependence Current Visit: Yes Status: Chronic (3) Gastritis Current Visit: Yes Status: Chronic Qualifiers: Gastritis type: alcoholic Gastritis bleeding: with bleeding Comment: arabella stool (4) Nicotine dependence Current Visit: Yes Status: Chronic Qualifiers: Nicotine product type: cigarettes Substance use status: in withdrawal Qualified Code(s): F17.213 - Nicotine dependence, cigarettes, with withdrawal (5) Essential hypertension Current Visit: Yes Status: Chronic (6) Depression (emotion) Current Visit: Yes Status: Chronic Qualifiers: Depression Type: major depressive disorder Major depression recurrence: recurrent Active/Remission status: in partial remission Qualified Code(s): F33.41 - Major depressive disorder, recurrent, in partial remission Cleared for Admission B[facility] - Detox or Rehab S Level of Care: Medically Managed Detox Regimen/Protocol: Librium BHS Breath Alcohol Content Breath Alcohol Content: 0 Vital Signs - Vital Signs Vital Signs Refused: No Temperature: 96.8 F Temperature Source: Oral Pulse Rate: 111 Respiratory Rate: 20 Blood Pressure: 138/83 BP Location: Right Arm Blood Pressure Position: Sitting - Height Height: 5 ft 4 in - Weight Weight: 191 lb Weight Measurement Method: Standing Scale Body Mass Index (BMI): 32.8 - Bowel Function Bowel Movement: Yes Urine Drug Screen - Test Device Lot Number: [id number] Expiration Date: 08/01/19 - Control Is Test Valid: Yes - Results Drug Screen Negative: No Urine Drug Screen Results: THC-Marijuana, BZO-Benzodiazepines (LIBRIUM ADMINSTERED IN ER)
[2017-10-29 03:35] VITALS: BMI 32.8
[2017-10-29] MEDS ORDERED: NICOTINE POLACRILEX 2 MG GUM BC PRN (03:42)
[2017-10-29] MEDS ORDERED: P-EPHED 60MG/TRIPROLIDI 2.5MG TABLET PO PRN (03:42)
[2017-10-29] MEDS ORDERED: MENTHOL/PHENOL 1 EACH UD MM PRN (03:42)
[2017-10-29] MEDS ORDERED: MAGNESIUM HYDROX 2400MG/30ML ORAL SUSPENSION 30 ML CUP PO PRN (03:42)
[2017-10-29] MEDS ORDERED: guaiFENesin/D-METHORPHAN HB 10 ML UNIT-DOSE CUPS PO PRN (03:42)
[2017-10-29] MEDS ORDERED: IBUPROFEN 400 MG TABLET (FP) PO PRN (03:42)
[2017-10-29] MEDS ORDERED: chlordiazePOXIDE HCL 25 MG CAPSULE PO PRN (03:42)
[2017-10-29] MEDS ORDERED: ACETAMINOPHEN 325 MG TABLET (FP) PO PRN (03:42)
[2017-10-29] MEDS ORDERED: chlordiazePOXIDE HCL 25 MG CAPSULE PO ONE ×2 (03:42→14:30)
[2017-10-29] MEDS ORDERED: MAG HYDROX/AL HYDROX/SIMETH 30 ML UNIT-DOSE CUP PO PRN (03:42)
[2017-10-29] MEDS ORDERED: MAGNESIUM CITRATE 300 ML BOTTLE PO PRN (03:42)
[2017-10-29] MEDS ORDERED: LOPERAMIDE HCL 2 MG CAPSULE PO PRN (03:42)
[2017-10-29] MEDS: chlordiazePOXIDE HCL 25 MG CAPSULE PO SCH ×4 (06:50→22:11)
[2017-10-29 09:52] LABS: HEMATOCRIT 45.1 % (35.4-49); HEMOGLOBIN 14.7 GM/dL (11.7-16.9); MCH 28.7 pg (25.7-33.7); MCHC 32.6 g/dl (32.0-35.9); MEAN CELL VOLUME 88.1 fl (80-96); MEAN PLT VOLUME 10.4 fl (7.5-11.1); PLATELET COUNT 49 K/MM3 (134-434); RBC 5.12 M/mm3 (4.00-5.60); RDW 14.4 % (11.9-15.9); WHITE BLOOD COUNT 5.9 K/mm3 (4.0-10.0)
[2017-10-29] MEDS: HYDROCHLOROTHIAZIDE 25 MG TABLET (FP) PO SCH (10:08)
[2017-10-29] MEDS: PRENATAL VITAMINS W/ FOLIC ACID TABLET (FP) PO SCH (10:08)
[2017-10-29] MEDS: NICOTINE 14 MG/24 HOURS TOPICAL PATCH TD SCH (10:09)
[2017-10-29 10:11] LABS: CHLORIDE 103 mmol/L (98-107); POTASSIUM 3.2 mmol/L (3.5-5.1); SODIUM 137 mmol/L (136-145)
[2017-10-29 10:21] LABS: ALBUMIN 3.4 g/dl (3.4-5.0); ALK PHOS 83 U/L (45-117); ANION GAP 7 (8-16); BILIRUBIN,TOTAL 1.5 mg/dL (0.2-1.0); BLOOD UREA NITROGEN 7 mg/dL (7-18); CALCIUM 8.1 mg/dL (8.5-10.1); CO2 27 mmol/L (21-32); CREATININE 1.1 mg/dL (0.7-1.3); GLUCOSE,RANDOM 103 mg/dL (74-106); SGOT/AST 115 U/L (15-37); SGPT/ALT 78 U/L (12-78); TOT PROT 6.8 g/dl (6.4-8.2)
--- NOTE | 2017-10-29 11:03 | PN ---
[facility] Progress Note Note: PT WAS ADMITTED EARLIER THIS MORNING. ALERT O X 3. BUT VERY TREMULOUS AND ANXIOUS. SLIGHTLY FATIGUED. Vital Signs Temperature 96.5 F L 10/29/17 09:07 Pulse Rate 105 H 10/29/17 09:07 Respiratory Rate 20 10/29/17 09:07 Blood Pressure 141/95 10/29/17 09:07 O2 Sat by Pulse Oximetry (%) Laboratory Last Values WBC 5.9 K/mm3 (4.0-10.0) D 10/29/17 07:30 RBC 5.12 M/mm3 (4.00-5.60) 10/29/17 07:30 Hgb 14.7 GM/dL (11.7-16.9) D 10/29/17 07:30 Hct 45.1 % (35.4-49) 10/29/17 07:30 MCV 88.1 fl (80-96) 10/29/17 07:30 MCH 28.7 pg (25.7-33.7) 10/29/17 07:30 MCHC 32.6 g/dl (32.0-35.9) 10/29/17 07:30 RDW 14.4 % (11.9-15.9) 10/29/17 07:30 Plt Count 49 K/MM3 (134-434) L D 10/29/17 07:30 MPV 10.4 fl (7.5-11.1) D 10/29/17 07:30 Sodium 137 mmol/L (136-145) 10/29/17 07:30 Potassium 3.2 mmol/L (3.5-5.1) L 10/29/17 07:30 Chloride 103 mmol/L (98-107) 10/29/17 07:30 Carbon Dioxide 27 mmol/L (21-32) D 10/29/17 07:30 Anion Gap 7 (8-16) L 10/29/17 07:30 BUN 7 mg/dL (7-18) 10/29/17 07:30 Creatinine 1.1 mg/dL (0.7-1.3) 10/29/17 07:30 Creat Clearance w eGFR > 60 (>60) 10/29/17 07:30 Random Glucose 103 mg/dL (74-106) 10/29/17 07:30 Calcium 8.1 mg/dL (8.5-10.1) L 10/29/17 07:30 Total Bilirubin 1.5 mg/dL (0.2-1.0) H 10/29/17 07:30 AST 115 U/L (15-37) H D 10/29/17 07:30 ALT 78 U/L (12-78) 10/29/17 07:30 Alkaline Phosphatase 83 U/L (45-117) D 10/29/17 07:30 Total Protein 6.8 g/dl (6.4-8.2) D 10/29/17 07:30 Albumin 3.4 g/dl (3.4-5.0) D 10/29/17 07:30 K+ =3.2 PLAN: KCL LIQUID 20 MEQ PO BID ADDITIONAL LIBRIUM 50 MG PO ONCE AT 2:30 PM TODAY. INCREASE PO FLUIDS
--- NOTE | 2017-10-29 13:09 | EKG ---
Test Reason : Blood Pressure : / mmHG Vent. Rate : 093 BPM Atrial Rate : 093 BPM P-R Int : 118 ms QRS Dur : 084 ms QT Int : 360 ms P-R-T Axes : 076 073 046 degrees QTc Int : 447 ms NORMAL SINUS RHYTHM NORMAL ECG WHEN COMPARED WITH ECG OF 13-FEB-2017 18:44, NO SIGNIFICANT CHANGE WAS FOUND Confirmed by KRISTIAN DENG MD ([id number]) on 10/29/2017 1:09:14 PM Referred By: Confirmed By:KRISTIAN DENG MD
--- NOTE | 2017-10-29 14:49 | CONSULT ---
[facility] Psychiatric Consult - Data Date of interview: 10/29/17 Admission source: [facility] Identifying data: Pt. is a 41 year old male, single, without kids, and unemployed. This is one of multiple admissions for patient. Pt. admitted to for alcohol and marijuana dependence. Substance Abuse History: Following information confirmed with Mr. Palma: - Smoking Cessation. Smoking history: Current every day smoker. Have you smoked in the past 12 months: Yes. Aproximately how many cigarettes per day: 30. Substance & Tx. History. Hx Alcohol Use: Yes (Beer, Vodka). Hx Substance Use: Yes. Substance Use Type: Marijuana. Hx Substance Use Treatment: Yes ([facility]). * * Alcohol- Route: Oral Frequency: Daily. Amount used: Beer - 2 x (6 packs), Vodka - 3 pints. Age of first use: 13. Date of Last Use: 10/28/17. Marijuana/Hashish- Route: Smoking Frequency: Daily. Amount used: $10 Age of first use: 13. Date of Last Use: 10/28/17 Medical History: GERD. Psychiatric History: Pt. reports h/o at least 20 psychiatric hospitalizations since 1988 with the most recent hospitalization occuring in April/May of 2017. Pt. reports a diagnosis of Mood disorder, Major depressive disorder, and Bipolar disorder. States his medications are seroquel 300mg qhs and prozac 40mg po daily but has not taken them in over 5 weeks. Pt. only interested in restarting the seroquel. Pt. does not have an outpatient psychiatrist. States he gets his medications from various clinics which include the clinics in [facility] and [facility]. Pt. with a h/o one suicide attempt in 2005 by overdose of heroin and psychiatric medications. Pt. currently denies suicidal and homicidal ideation. Physical/Sexual Abuse/Trauma History: Denies. Mental Status Exam - Mental Status Exam Alert and Oriented to: Time, Place, Person Cognitive Function: Good Patient Appearance: Unkempt Mood: Sad Affect: Flat Patient Behavior: Fatigued, Cooperative Speech Pattern: Delayed Voice Loudness: Moderately Soft/Quiet Thought Process: Goal Oriented Thought Disorder: Not Present Hallucinations: Denies Suicidal Ideation: Denies Homicidal Ideation: Denies Insight/Judgement: Poor Sleep: Poorly Appetite: Fair Muscle strength/Tone: Normal Gait/Station: Other (Did not observe patient's gait as patient was laying on bed throughout interview.) Psychiatric Findings - Problem List ([place] 1, 2,3) (1) Alcohol dependence with uncomplicated withdrawal Current Visit: Yes Status: Acute (2) Cannabis dependence Current Visit: Yes Status: Acute (3) Nicotine dependence Current Visit: Yes Status: Acute Qualifiers: Nicotine product type: cigarettes Substance use status: in withdrawal Qualified Code(s): F17.213 - Nicotine dependence, cigarettes, with withdrawal (4) Drug-induced mood disorder Current Visit: Yes Status: Acute (5) Major depressive disorder Current Visit: Yes Status: Acute (6) Bipolar disorder Current Visit: Yes Status: Suspected Comment: History. - Initial Treatment Plan Initial Treatment Plan: Psychoeduation provided. Detoxification in progress. Seroquel 100mg qhs ordered with plan to titrate to 200mg if medication tolerated well. Benefits and side effects discussed. Verbal consent given. Pt. agreeable with plan. Will continue to monitor.
[2017-10-29] MEDS: QUEtiapine FUMARATE 100 MG TABLET (FP) PO SCH (22:11)
[2017-10-29] MEDS: THIAMINE HCL 100 MG TABLET (FP) PO SCH (22:11)
[2017-10-30] MEDS: chlordiazePOXIDE HCL 25 MG CAPSULE PO SCH ×4 (05:11→22:28)
[2017-10-30] MEDS: HYDROCHLOROTHIAZIDE 25 MG TABLET (FP) PO SCH (10:15)
[2017-10-30] MEDS: PRENATAL VITAMINS W/ FOLIC ACID TABLET (FP) PO SCH (10:15)
[2017-10-30] MEDS: NICOTINE 14 MG/24 HOURS TOPICAL PATCH TD SCH (10:16)
[2017-10-30] MEDS ORDERED: POTASSIUM CHLORIDE ORAL LIQUID 20 MEQ/15 ML PO ONE (12:44)
--- NOTE | 2017-10-30 12:45 | PN ---
[facility] CIWA - CIWA Score Nausea/Vomitin-No Nausea/No Vomiting Muscle Tremors: 4-Moderate,w/Arms Extend Anxiety: 4-Mod. Anxious/Guarded Agitation: 4-Moderately Restless Paroxysmal Sweats: 1-Minimal Palms Moist Orientation: 0-Oriented Tacttile Disturbances: 3-Moderate Itch/Numb/Burn Auditory Disturbances: 0-None Visual Disturbances: 0-None Headache: 0-None Present CIWA-Ar Total Score: 16 S Progress Note (SOAP) Subjective: ANXIETY,SLIGHT TREMORS, FATIGUE. Objective: 10/30/17 12:43 Vital Signs Temperature 97.0 F L 10/30/17 09:14 Pulse Rate 123 H 10/30/17 09:14 Respiratory Rate 16 10/30/17 09:14 Blood Pressure 136/95 10/30/17 09:14 O2 Sat by Pulse Oximetry (%) Laboratory Last Values WBC 5.9 K/mm3 (4.0-10.0) D 10/29/17 07:30 RBC 5.12 M/mm3 (4.00-5.60) 10/29/17 07:30 Hgb 14.7 GM/dL (11.7-16.9) D 10/29/17 07:30 Hct 45.1 % (35.4-49) 10/29/17 07:30 MCV 88.1 fl (80-96) 10/29/17 07:30 MCH 28.7 pg (25.7-33.7) 10/29/17 07:30 MCHC 32.6 g/dl (32.0-35.9) 10/29/17 07:30 RDW 14.4 % (11.9-15.9) 10/29/17 07:30 Plt Count 49 K/MM3 (134-434) L D 10/29/17 07:30 MPV 10.4 fl (7.5-11.1) D 10/29/17 07:30 Sodium 137 mmol/L (136-145) 10/29/17 07:30 Potassium 3.2 mmol/L (3.5-5.1) L 10/29/17 07:30 Chloride 103 mmol/L (98-107) 10/29/17 07:30 Carbon Dioxide 27 mmol/L (21-32) D 10/29/17 07:30 Anion Gap 7 (8-16) L 10/29/17 07:30 BUN 7 mg/dL (7-18) 10/29/17 07:30 Creatinine 1.1 mg/dL (0.7-1.3) 10/29/17 07:30 Creat Clearance w eGFR > 60 (>60) 10/29/17 07:30 Random Glucose 103 mg/dL (74-106) 10/29/17 07:30 Calcium 8.1 mg/dL (8.5-10.1) L 10/29/17 07:30 Total Bilirubin 1.5 mg/dL (0.2-1.0) H 10/29/17 07:30 AST 115 U/L (15-37) H D 10/29/17 07:30 ALT 78 U/L (12-78) 10/29/17 07:30 Alkaline Phosphatase 83 U/L (45-117) D 10/29/17 07:30 Total Protein 6.8 g/dl (6.4-8.2) D 10/29/17 07:30 Albumin 3.4 g/dl (3.4-5.0) D 10/29/17 07:30 RPR Titer Nonreactive (NONREACTIVE) 10/29/17 07:30 Hepatitis C Antibody 0.2 s/co ratio (0.0-0.9) 10/29/17 11:50 K+ = 3.2 Assessment: 10/30/17 12:45 WITHDRAWAL SX HYPOKALEMIA Plan: CONTINUE DETOX
[2017-10-30 17:07] LABS: URINE APPEARANCE CLOUDY; URINE BILIRUBIN NEGATIVE (NEGATIVE); URINE BLOOD NEGATIVE (NEGATIVE); URINE COLOR AMBER; URINE GLUCOSE (UA) NEGATIVE (NEGATIVE); URINE KETONE NEGATIVE (NEGATIVE); URINE LEUK ESTERASE TRACE (NEGATIVE); URINE NITRITE NEGATIVE (NEGATIVE); URINE PROTEIN NEGATIVE (NEGATIVE); URINE UROBILINOGEN 4.0 E.U/dl mg/dL (0.2-1.0)
[2017-10-30 18:29] LABS: EPI CELLS RARE /HPF (FEW); URINE BACTERIA RARE /hpf (NONE SEEN); URINE MUCUS FEW
[2017-10-30] MEDS: POTASSIUM CHLORIDE ORAL LIQUID 20 MEQ/15 ML PO SCH (22:27)
[2017-10-30] MEDS: THIAMINE HCL 100 MG TABLET (FP) PO SCH (22:27)
[2017-10-30] MEDS: QUEtiapine FUMARATE 100 MG TABLET (FP) PO SCH (22:28)
[2017-10-31] MEDS: chlordiazePOXIDE 5 MG CAPSULE PO SCH ×4 (05:50→22:16)
[2017-10-31] MEDS: ONDANSETRON *ODT* 4 MG TABLET SL PRN (10:20)
[2017-10-31] MEDS: HYDROCHLOROTHIAZIDE 25 MG TABLET (FP) PO SCH (11:23)
[2017-10-31] MEDS: PRENATAL VITAMINS W/ FOLIC ACID TABLET (FP) PO SCH (11:23)
[2017-10-31] MEDS: POTASSIUM CHLORIDE ORAL LIQUID 20 MEQ/15 ML PO SCH ×2 (11:24→22:15)
[2017-10-31] MEDS: NICOTINE 14 MG/24 HOURS TOPICAL PATCH TD SCH (11:26)
--- NOTE | 2017-10-31 16:50 | PN ---
[facility] CIWA - CIWA Score Nausea/Vomitin Muscle Tremors: None Anxiety: 4-Mod. Anxious/Guarded Agitation: 3 Paroxysmal Sweats: 3 Orientation: 0-Oriented Tacttile Disturbances: 0-None Auditory Disturbances: 2-Mild Harshness/Frighten Visual Disturbances: 2-Mild Sensitivity Headache: 0-None Present CIWA-Ar Total Score: 17 S Progress Note (SOAP) Subjective: Anxious, Nausea, Sweating, Stomach Cramping. Objective: PT. A & O X 3, OBSERVED AMBULATING ON UNIT. NO ACUTE DISTRESS. 10/31/17 16:46 Vital Signs Temperature 97.0 F L 10/31/17 13:46 Pulse Rate 146 H 10/31/17 13:46 Respiratory Rate 19 10/31/17 13:46 Blood Pressure 147/105 10/31/17 13:46 O2 Sat by Pulse Oximetry (%) Laboratory Tests 10/29/17 10/29/17 10/29/17 07:30 07:30 07:30 WBC 5.9 D RBC 5.12 Hgb 14.7 D Hct 45.1 MCV 88.1 MCH 28.7 MCHC 32.6 RDW 14.4 Plt Count 49 L D MPV 10.4 D Sodium 137 Potassium 3.2 L Chloride 103 Carbon Dioxide 27 D Anion Gap 7 L BUN 7 Creatinine 1.1 Creat Clearance w eGFR > 60 Random Glucose 103 Calcium 8.1 L Total Bilirubin 1.5 H AST 115 H D ALT 78 Alkaline Phosphatase 83 D Total Protein 6.8 D Albumin 3.4 D Urine Color Urine Appearance Urine pH Ur Specific [place] Urine Protein Urine Glucose (UA) Urine Ketones Urine Blood Urine Nitrite Urine Bilirubin Urine Urobilinogen Ur Leukocyte Esterase Urine WBC (Auto) Urine RBC (Auto) Ur Epithelial Cells Urine Bacteria Urine Mucus RPR Titer Nonreactive Hepatitis C Antibody 10/29/17 10/30/17 11:50 12:40 WBC RBC Hgb Hct MCV MCH MCHC RDW Plt Count MPV Sodium Potassium Chloride Carbon Dioxide Anion Gap BUN Creatinine Creat Clearance w eGFR Random Glucose Calcium Total Bilirubin AST ALT Alkaline Phosphatase Total Protein Albumin Urine Color [place] Urine Appearance Cloudy Urine pH 7.0 Ur Specific [place] 1.015 Urine Protein Negative Urine Glucose (UA) Negative Urine Ketones Negative Urine Blood Negative Urine Nitrite Negative Urine Bilirubin Negative Urine Urobilinogen 4.0 e.u/dl Ur Leukocyte Esterase Trace H Urine WBC (Auto) 10 Urine RBC (Auto) 2 Ur Epithelial Cells Rare Urine Bacteria Rare Urine Mucus Few RPR Titer Hepatitis C Antibody 0.2 LABS NOTED. Assessment: 10/31/17 16:46 WITHDRAWAL SYMPTOMS. HYPOKALEMIA. 10/31/17 16:49 Plan: CONTINUE DETOX. PRN ZOFRAN SL FOR NAUSEA. REPEAT UA FOR ADMISSION ABNORMALITIES AND REPEAT AST FOR ELEVATED ADMISSION LEVEL. INCREASE DAILY PO FLUID INTAKE.
--- NOTE | 2017-10-31 18:32 | PN ---
[facility] Progress Note Note: Psychiaty Attending's note : Approached by patient this morning. Reason : complaint of insomnia. Seroquel 100 mg/hs not effective. Will titrate to 200 mg po hs. Ordered. As scheduled in treatment plan. Patient already known to staff writer. Side effects/benefits reviewed. Cognitively intact,ambulatory.Steady gait. Mr Palma expressed his agreement to careplan. Will follow.
[2017-10-31] MEDS ORDERED: QUEtiapine FUMARATE 200 MG TABLET PO SCH (22:00)
[2017-10-31] MEDS: THIAMINE HCL 100 MG TABLET (FP) PO SCH (22:16)
[2017-11-01] MEDS ORDERED: chlordiazePOXIDE HCL 10 MG CAPSULE PO SCH (05:00)
[2017-11-01] MEDS: ONDANSETRON *ODT* 4 MG TABLET SL PRN (06:03)
[2017-11-01 09:04] VITALS: BP 131/96; PULSE 122; TEMP 97
--- NOTE | 2017-11-01 17:13 | DS ---
[facility] Detox Discharge Summary Admission Date: 10/29/17 Discharge Date: 11/01/17 - History Present History: Alcohol Dependence, Cannabis Dependence Pertinent Past History: HTN GERD - Physical Exam Results Vital Signs: Vital Signs Temperature 97.0 F L 11/01/17 09:04 Pulse Rate 122 H 11/01/17 09:04 Respiratory Rate 20 11/01/17 09:04 Blood Pressure 131/96 11/01/17 09:04 O2 Sat by Pulse Oximetry (%) Pertinent Admission Physical Exam Findings: Withdrawal symptoms Laboratory Tests 10/29/17 10/29/17 10/29/17 07:30 07:30 07:30 WBC 5.9 D RBC 5.12 Hgb 14.7 D Hct 45.1 MCV 88.1 MCH 28.7 MCHC 32.6 RDW 14.4 Plt Count 49 L D MPV 10.4 D Sodium 137 Potassium 3.2 L Chloride 103 Carbon Dioxide 27 D Anion Gap 7 L BUN 7 Creatinine 1.1 Creat Clearance w eGFR > 60 Random Glucose 103 Calcium 8.1 L Total Bilirubin 1.5 H AST 115 H D ALT 78 Alkaline Phosphatase 83 D Total Protein 6.8 D Albumin 3.4 D Urine Color Urine Appearance Urine pH Ur Specific [place] Urine Protein Urine Glucose (UA) Urine Ketones Urine Blood Urine Nitrite Urine Bilirubin Urine Urobilinogen Ur Leukocyte Esterase Urine WBC (Auto) Urine RBC (Auto) Ur Epithelial Cells Urine Bacteria Urine Mucus RPR Titer Nonreactive Hepatitis C Antibody 10/29/17 10/30/17 11:50 12:40 WBC RBC Hgb Hct MCV MCH MCHC RDW Plt Count MPV Sodium Potassium Chloride Carbon Dioxide Anion Gap BUN Creatinine Creat Clearance w eGFR Random Glucose Calcium Total Bilirubin AST ALT Alkaline Phosphatase Total Protein Albumin Urine Color Daija Urine Appearance Cloudy Urine pH 7.0 Ur Specific [place] 1.015 Urine Protein Negative Urine Glucose (UA) Negative Urine Ketones Negative Urine Blood Negative Urine Nitrite Negative Urine Bilirubin Negative Urine Urobilinogen 4.0 e.u/dl Ur Leukocyte Esterase Trace H Urine WBC (Auto) 10 Urine RBC (Auto) 2 Ur Epithelial Cells Rare Urine Bacteria Rare Urine Mucus Few RPR Titer Hepatitis C Antibody 0.2 Labs noted - Treatment Hospital Course: Detox Protocol Followed, Detoxed Safely, Responded well, Discharged Condition Good - Medication Discharge Medications: Ambulatory Orders Hydrochlorothiazide [Hctz -] 25 mg PO DAILY #30 tablet 09/08/16 Quetiapine Fumarate [Seroquel] 300 mg PO HS 10/29/17 - Diagnosis (1) Alcohol dependence with uncomplicated withdrawal Status: Acute (2) Cannabis dependence Status: Chronic (3) Hypokalemia Status: Acute (4) Nicotine dependence Status: Chronic Qualifiers: Nicotine product type: cigarettes Substance use status: in withdrawal Qualified Code(s): F17.213 - Nicotine dependence, cigarettes, with withdrawal (5) Depression (emotion) Status: Chronic Qualifiers: Depression Type: major depressive disorder Major depression recurrence: recurrent Active/Remission status: in partial remission Qualified Code(s): F33.41 - Major depressive disorder, recurrent, in partial remission (6) Essential hypertension Status: Chronic (7) Gastritis Status: Chronic Qualifiers: Gastritis type: alcoholic Chronicity: unspecified Gastritis bleeding: with bleeding Qualified Code(s): K29.21 - Alcoholic gastritis with bleeding - AMA Did Patient Leave Against Medical Advice: No (F/U with PCP within 1 week)
== END 2017-11-01 09:24 | disposition home or self-care (01) | DRG 775 ==
LOC: YASAS 03:02 → Y3N 03:09
PROVIDERS: ADMIT Internal Medicine; ATTEND Internal Medicine
PROC: HZ2ZZZZ Detoxification Services for Substance Abuse Treatment (ICD-10-PCS; principal; 2017-10-29)
DX: F10.230 Alcohol dependence with withdrawal, uncomplicated (principal); F12.20 Cannabis dependence, uncomplicated; F17.213 Nicotine dependence, cigarettes, with withdrawal; F33.41 Major depressive disorder, recurrent, in partial remission; F19.24 Other psychoactive substance dependence with psychoactive substance-induced mood disorder; F31.9 Bipolar disorder, unspecified; I10 Essential (primary) hypertension; K29.21 Alcoholic gastritis with bleeding; E87.6 Hypokalemia; Z91.5 Personal history of self-harm
CPT/HCPCS: 36415; 80053; 81003; 81015; 85027; 86593; 86803; 93005; 93010